=== PATIENT | female | born 1955 ===

== ENCOUNTER 2019-05-02 12:06 | Emergency (ER) | payer OTHER ==
--- NOTE | 2019-05-02 12:27 | EDM.PDOC ---
ED HPI GENERAL MEDICAL PROBLEM - General Chief Complaint: Headache Stated Complaint: HEADACHE FOR 11 DAYS Time Seen by Provider: 05/02/19 12:14 Source of Information: Reports: Patient History Limitations: Reports: No Limitations - History of Present Illness INITIAL COMMENTS - FREE TEXT/NARRATIVE: HISTORY AND PHYSICAL: History of present illness: Patient is a 63-year-old female presents to the ED with complaint of headache x 11 days. She states about 3 weeks ago she had vertigo, was seen in the clinic and treated for an ear infection. Since finishing the antibiotic she has had a headache that will come and go. She states she sometimes has pain at the base of her head that will radiate forward, sometimes has pain behind her ears and down her neck that will radiate to the top of her head. She reports yesterday she would get a shooting pain her head with every step she took. She states she had been congested and has been using saline rinses. She denies visual changes and states she is no longer dizzy. Denies head injury, fevers, chills, chest pain, SOB, nausea, vomiting, abdominal pain. She does have a history of migraines but has not had one since she had a hysterectomy 20 years ago. Review of systems: As per history of present illness and below otherwise all systems reviewed and negative. Past medical history: As per history of present illness and as reviewed below otherwise noncontributory. Surgical history: As per history of present illness and as reviewed below otherwise noncontributory. Social history: No reported history of drug or alcohol abuse. Family history: As per history of present illness and as reviewed below otherwise noncontributory. Physical exam: General: Patient sitting comfortably in no acute distress and nontoxic appearing HEENT: Atraumatic, normocephalic, pupils reactive, negative for conjunctival pallor or scleral icterus, mucous membranes moist, throat clear, neck supple, nontender, trachea midline. No meningeal signs. No mastoid tenderness. TMs clear bilaterally. Lungs: Clear to auscultation, breath sounds equal bilaterally, chest nontender. Heart: S1S2, regular, negative for clicks, rubs, or overt murmur. Abdomen: Soft, nondistended, nontender. Negative for masses or hepatosplenomegaly. Negative for costovertebral tenderness. No rigidity, rebound , guarding. Pelvis: Stable nontender. Genitourinary: Deferred. Rectal: Deferred. Extremities: Atraumatic, negative for cords or calf pain. Neurovascular unremarkable. Neuro: Awake, alert, oriented. Cranial nerves II through XII unremarkable. Cerebellum unremarkable. Motor and sensory unremarkable throughout. Exam nonfocal. Notes: Diagnostics: Head CT, EKG Patient declined labs Therapeutics: Patient declined IV Toradol 60mg IM Prescriptions: Impression: Cervicalgia Plan: Drink plenty of fluids and alternate tylenol and motrin as needed Follow up with primary care provider Return to ED as needed as discussed Definitive disposition and diagnosis as appropriate pending reevaluation and review of above. back of head Pain Score (Numeric/FACES): 8 - Related Data Allergies Allergy/AdvReac Type Severity Reaction Status Date / Time cephalexin Allergy Other Verified 05/02/19 12:24 ED ROS GENERAL - Review of Systems Review Of Systems: ROS reveals no pertinent complaints other than HPI. - Physical Exam Exam: See Below (see dictation) Course - Vital Signs Last Recorded V/S: Last Vital Signs Temp 97.2 F 05/02/19 12:24 Pulse 63 05/02/19 12:38 Resp 16 05/02/19 12:38 BP 134/77 05/02/19 14:11 Pulse Ox 96 05/02/19 12:38 - Orders/Labs/Meds Meds: Medications Discontinued Medications Generic Name Dose Route Start Last Admin Trade Name Freq PRN Reason Stop Dose Admin Ketorolac Tromethamine 60 mg 05/02/19 14:06 Toradol IM 05/02/19 14:07 ONETIME ONE Departure - Departure Time of Disposition: 14:07 Disposition: Home, Self-Care 01 Condition: Good Clinical Impression: Cervicalgia - Discharge Information Referrals: PCP,None [Primary Care Provider] - Forms: ED Department Discharge Additional Instructions: The following information is given to patients seen in the emergency department who are being discharged to home. This information is to outline your options for follow-up care. We provide all patients seen in our emergency department with a follow-up referral. The need for follow-up, as well as the timing and circumstances, are variable depending upon the specifics of your emergency department visit. If you don't have a primary care physician on staff, we will provide you with a referral. We always advise you to contact your personal physician following an emergency department visit to inform them of the circumstance of the visit and for follow-up with them and/or the need for any referrals to a consulting specialist. The emergency department will also refer you to a specialist when appropriate. This referral assures that you have the opportunity for follow-up care with a specialist. All of these measure are taken in an effort to provide you with optimal care, which includes your follow-up. Under all circumstances we always encourage you to contact your private physician who remains a resource for coordinating your care. When calling for follow-up care, please make the office aware that this follow-up is from your recent emergency room visit. If for any reason you are refused follow-up, please contact the [facility] at and asked to speak to the emergency department charge nurse. [facility] [address] [place] [id number] [id number] Drink plenty of fluids and alternate tylenol and motrin as needed Follow up with primary care provider Return to ED as needed as discussed
--- NOTE | 2019-05-02 14:02 | CT ---
INDICATION: Headache TECHNIQUE: CT head without contrast. COMPARISON: None available FINDINGS: Mild ventricular enlargement could be related to central atrophy. There is no mass effect or midline shift. Few foci of white matter hypodensity are nonspecific, suggestive of chronic small vessel ischemic changes in a patient of this age. There is no loss of steele-white differentiation. There is no evidence of an acute intracranial hemorrhage. No acute calvarial fracture is seen. There are several partially calcified subcutaneous scalp nodules, nonspecific, which could represent epidermal inclusion cysts. The visualized paranasal sinuses and mastoid air cells are clear. The visualized orbits are within normal limits. IMPRESSION: No evidence of an acute intracranial hemorrhage, mass effect or loss of steele-white differentiation. Mild ventriculomegaly could be related to central atrophy. Compare with prior studies, if available, and, if indicated, follow-up to assess stability. Dictated by Jamari Aviles MD @ 05/02/2019 2:00:19 PM Please note that all CT scans at this facility use dose modulation, iterative reconstruction, and/or weight-based dosing when appropriate to reduce radiation dose to as low as reasonably achievable. Dictated by: Jamari Aviles MD @ 05/02/2019 14:00:28 (Electronically Signed)
[2019-05-02] MEDS ORDERED: Ketorolac 60 MG/2 ML SDV IM ONE (14:06)
== END 2019-05-02 14:35 | disposition home or self-care (01) ==
LOC: MW.ED 12:06
DX: M54.2 Cervicalgia (principal); Z88.1 Allergy status to other antibiotic agents
CPT/HCPCS: 70450; 93005; 96372; 99284; J1885